=== PATIENT | male | born 1990 | race Caucasian/White ===

== ENCOUNTER 2020-03-09 18:00 | Emergency (ER) | payer SELFPAY ==
[~2020-03-09] VITALS: Ht 180.3 cm; Wt 77.1 kg
[2020-03-09 18:01] VITALS: BP 133/89; Ht 180.3 cm; Wt 77.1 kg
== END 2020-03-09 18:44 | disposition home or self-care (01) ==
LOC: ED 18:00
DX: R19.7 Diarrhea, unspecified (principal); R11.10 Vomiting, unspecified; Z20.828 Contact with and (suspected) exposure to other viral communicable diseases
CPT/HCPCS: U0003-CS